=== PATIENT | female | born 1990 | race Caucasian/White ===

== ENCOUNTER 2016-11-22 21:56 | Emergency (ER) | payer BC, MEDICAID ==
[2016-11-22 22:23] LABS: AMORPHOUS SEDIMENT,URINE TRACE /HPF; APPEARANCE,URINE CLOUDY; BILIRUBIN,URINE NEGATIVE (NEGATIVE); GLUCOSE, URINE NEGATIVE (NEGATIVE); KETONES,URINE NEGATIVE (NEGATIVE); LEUKOCYTE ESTERASE,URINE NEGATIVE (NEGATIVE); NITRITE,URINE NEGATIVE (NEGATIVE); PROTEIN,URINE NEGATIVE (NEGATIVE); URINE SPECIFIC GRAVITY 1.014; UROBILINOGEN,URINE NEGATIVE mg/dL (<2.0)
--- NOTE | 2016-11-22 22:38 | ER Document Report ---
ED GI/ - General Chief Complaint: Vaginal Bleeding Stated Complaint: VAGINAL BLEEDING Time Seen by Provider: 11/22/16 22:36 Notes: The patient is a 26-year-old female, , 10 weeks by LMP presents with a gush of blood earlier today that has slowed down and now she is only having vaginal spotting. Her blood type is O+. Her first appointment with OB is in 4 days. She denies urinary symptoms, lightheadedness, nausea, vomiting, abdominal pain or fevers. TRAVEL OUTSIDE OF THE [place] IN LAST 30 DAYS: No - Related Data Allergies/Adverse Reactions: Pertussis Vaccines Allergy (Verified 11/22/16 22:11) Past Medical History - General Information source: Patient - Social History Smoking Status: Never Smoker Family History: Reviewed & Not Pertinent Patient has suicidal ideation: No Patient has homicidal ideation: No Renal/ Medical History: Denies: Hx Peritoneal Dialysis Review of Systems - Review of Systems Notes: REVIEW OF SYSTEMS: CONSTITUTIONAL: -fevers, -chills EENT: -eye pain, -difficulty swallowing, -nasal congestion CARDIOVASCULAR:-chest pain, -syncope. RESPIRATORY: -cough, -SOB GASTROINTESTINAL: -abdominal pain, - nausea, -vomiting, -diarrhea GENITOURINARY: -dysuria, -hematuria, +vaginal bleeding MUSCULOSKELETAL: -back pain, -neck pain SKIN: -rash or skin lesions. HEMATOLOGIC: -easy bruising or bleeding. LYMPHATIC: -swollen, enlarged glands. NEUROLOGICAL: -altered mental status or loss of consciousness, -headache, - neurologic symptoms PSYCHIATRIC: -anxiety, -depression. ALL OTHER SYSTEMS REVIEWED AND NEGATIVE. Physical Exam - Vital signs Vitals: Temp Pulse Resp BP Pulse Ox 98.2 F 84 18 132/72 H 100 11/22/16 22:08 11/22/16 22:08 11/22/16 22:08 11/22/16 22:08 11/22/16 22:08 - Notes Notes: PHYSICAL EXAMINATION: GENERAL: Well-appearing, well-nourished and in no acute distress. HEAD: Atraumatic, normocephalic. EYES: Pupils equal round and reactive to light, extraocular movements intact, sclera anicteric, conjunctiva are normal. ENT: nares patent, oropharynx clear without exudates. Moist mucous membranes. NECK: Normal range of motion, supple without lymphadenopathy LUNGS: Breath sounds clear to auscultation bilaterally and equal. No wheezes rales or rhonchi. HEART: Regular rate and rhythm without murmurs ABDOMEN: Soft, nontender, normoactive bowel sounds. No guarding, no rebound. No masses appreciated. EXTREMITIES: Normal range of motion, no pitting or edema. No cyanosis. NEUROLOGICAL: Cranial nerves grossly intact. Normal speech, normal gait. Normal sensory and motor exams. PSYCH: Normal mood, normal affect. SKIN: Warm, Dry, normal turgor, no rashes or lesions noted. Course - Re-evaluation Re-evalutation: Patient with no active vaginal bleeding at this time and a closed cervix. She has a single intrauterine with a subchorionic hemorrhage. Gave patient a copy of her ultrasound results and she has an appointment with her OB this week. Blood type is O+. Provided patient with information and return precautions. - Vital Signs Vital signs: Temp Pulse Resp BP Pulse Ox 98.2 F 84 18 132/72 H 100 11/22/16 22:08 11/22/16 22:08 11/22/16 22:08 11/22/16 22:08 11/22/16 22:08 - Laboratory Laboratory results interpreted by me: 11/22/16 11/22/16 22:00 22:55 Beta HCG, Quant 29574.00 H Urine Blood LARGE H Urine HCG, Qual POSITIVE H - Diagnostic Test Radiology reviewed: Image reviewed, Reports reviewed Radiology results interpreted by me: OB: LIVING INTRAUTERINE , at-risk with likely 4.9 cm subchorionic hemorrhage/clot. EGA 10 weeks 5 days Discharge - Discharge Clinical Impression: Vaginal bleeding in Subchorionic bleed Qualifiers: Fetus number: single or unspecified fetus Trimester: first trimester Qualified Code(s): O41.8X10 - Other specified disorders of amniotic fluid and membranes, first trimester, not applicable or unspecified; O46.8X1 - Other antepartum hemorrhage, first trimester; O46.8X1 - Other antepartum hemorrhage, first trimester Condition: Stable Disposition: HOME, SELF-CARE Additional Instructions: : You are . care is best started as early in as possible. If you're unsure about continuing this , you should discuss this with your physician or with sales enablement consultant at [facility]. You should take only medications approved by your physician. Acetaminophen can safely be taken for minor pains. As a rule, medication for chronic conditions such as asthma or seizures can safely be continued. You should discuss with the physician every medicine you take. Any regular exercise program can be continued. Talk to your physician, however, before engaging in competitive or demanding sports. Alcohol, smoking, and "street drugs" are dangerous to your baby. Cocaine is especially dangerous. Don't use any illicit drugs! BLEEDING DURING EARLY : You have been evaluated for passing blood while . While we take this symptom very seriously, most women with your degree of bleeding will go on to have a perfectly normal baby. At this time, there is no indication that a miscarriage will occur. (A miscarriage occurs when the fetus is abnormal. There is no medicine or treatment to prevent it.) A more serious cause of bleeding is tubal (or ectopic) . An ultrasound usually can show whether the is in the uterus or in the tube. Sometimes in early , no fetus is seen. In this case, careful follow-up, including repeat blood tests and repeat ultrasound, is necessary. Do not douche or have sex for at least a week, or until OK'd by the doctor. Don't use tampons. Call the doctor or return for re-examination if there is an increase in bleeding or cramping, extreme weakness, fainting, new abdominal pain, fever, or passage of tissue. THREATENED MISCARRIAGE: You have been evaluated for a possible miscarriage. At this time, there is no indication that a miscarriage will occur. Most women with your symptoms will go on to have a perfectly normal baby. However, careful observation will be necessary. A miscarriage occurs when the fetus is abnormal. There is no medicine or treatment for it. You should rest in bed until the symptoms have resolved. Do not douche or have sex for at least a week, or until OK'd by the doctor. Call the doctor or return for re-examination if there is an increase in bleeding or cramping, or passage of tissue. FOLLOW-UP CARE: If you have been referred to a physician for follow-up care, call the physician s office for an appointment as you were instructed or within the next two days. If you experience worsening or a significant change in your symptoms (very heavy bleeding with large clots of blood, passage of tissue, more severe abdominal / pelvic pain or cramping, feeling faint or severe weakness, fever, etc.), notify the physician immediately or return to the Emergency Department at any time for re-evaluation. OBSTETRIC-GYNECOLOGIC (OB-OTR COMPANY DRIVER) PHYSICIANS IN [place]: [facility] [address] [place], [place] [phone] [facility] [address] [place], [place] [phone] For active duty and dependents diagnosed with a threatened or miscarriage, you should follow up in the following manner: Standard patients who have a local civilian provider should follow up with that provider. Patients of the Family Practice Clinic should call your Team Nurse at 8: 00 am the following morning for further instructions. If you are neither a Standard patient nor a patient of the Family Practice Clinic, you should follow up at the [facility] ([facility]) . Patients already enrolled in the [facility] OB Clinic, Prime patients not assigned to the Family Practice Clinic, and Active Duty patients not assigned to Family Practice Clinic should report to the [facility] Lab at 8:00 am the next morning that the [facility] OB Clinic is open and then you will be seen in the OB Clinic at 11:00 am. Referrals: BRETT GUTIERREZ, DO [Primary Care Provider] - Follow up as needed
--- NOTE | 2016-11-23 01:38 | RADIOLOGY REPORT (SQ) ---
EXAM DESCRIPTION: U/S OB TRANSVAGINAL W/O DOP COMPLETED DATE/TIME: 11/23/2016 1:07 am REASON FOR STUDY: , vaginal bleeding COMPARISON: None. TECHNIQUE: Transvaginal and transabdominal static and realtime grayscale images acquired of the pelv is. Additional selected spectral and color Doppler images recorded. All images stored on PACs. bHC,154 LIMITATIONS: None. FINDINGS: FETUS: Living intrauterine . EGA: 10 weeks and 5 days 5 days based on crown-rump length of 3.8 cm. ANN: 06/16/2017. FHR: 182 beats per minute. SUBCHORIONIC BLEED: Yes. SIZE OF BLEED: 4.9 x 3.5 x 2.9 cm. UTERUS: No masses. No anomalies. CERVICAL LENGTH: 3.1 cm Closed. RIGHT ADNEXA: Ovary not identified. No adnexal free fluid. No adnexal masses. LEFT ADNEXA: Ovary not identified. No adnexal free fluid. No adnexal masses. FREE FLUID: None. OTHER: No other significant finding. IMPRESSION: LIVING INTRAUTERINE , at-risk with likely 4.9 cm subchorionic hemorrhage/clot. EGA 10 weeks 5 days Trimester of : First - 0 to 13 weeks. TECHNICAL DOCUMENTATION: JOB ID: [id number] All Rights Reserved
[2016-11-23 02:30] VITALS: BP 124/80
== END 2016-11-23 02:30 | disposition home or self-care (01) ==
LOC: ER 21:56
DX: O46.8X1 Other antepartum hemorrhage, first trimester (principal); O41.8X10 Other specified disorders of amniotic fluid and membranes, first trimester, not applicable or unspecified; Z3A.10 10 weeks gestation of pregnancy
CPT/HCPCS: 36415; 76817; 81001; 81025; 84702; 86900; 86901; 99284

== ENCOUNTER 2017-06-14 02:00 | Inpatient (IN) | payer BC ==
[2017-06-14 03:02] LABS: APPEARANCE,URINE CLOUDY; BILIRUBIN,URINE NEGATIVE (NEGATIVE); COLOR,URINE YELLOW; GLUCOSE, URINE NEGATIVE (NEGATIVE); KETONES,URINE NEGATIVE (NEGATIVE); LEUKOCYTE ESTERASE,URINE NEGATIVE (NEGATIVE); NITRITE,URINE NEGATIVE (NEGATIVE); PROTEIN,URINE NEGATIVE (NEGATIVE); URINE SPECIFIC GRAVITY 1.014; UROBILINOGEN,URINE NEGATIVE mg/dL (<2.0)
[2017-06-14 03:07] LABS: AMNISURE (ROM) POSITIVE (NEGATIVE)
[2017-06-14] MEDS ORDERED: RINGERS SOLUTION,LACTATED 300 ML IV ONE (03:16)
[2017-06-14] MEDS ORDERED: OXYTOCIN/NORMAL SALINE 20 UNIT/1,000 ML RTUINJ IV PRN ×2 (03:16→18:43)
[2017-06-14] MEDS ORDERED: ONDANSETRON HCL INJ/PF 4 MG/2 ML SDV IV ONE (03:22)
[2017-06-14 03:26] LABS: URINE AMPHETAMINES SCREEN NEGATIVE; URINE BARBITURATES SCREEN NEGATIVE; URINE BENZODIAZEPINES SCREEN NEGATIVE; URINE COCAINE SCREEN NEGATIVE; URINE MARIJUANA (THC) SCREEN NEGATIVE; URINE METHADONE SCREEN NEGATIVE; URINE PHENCYCLIDINE SCREEN NEGATIVE
[2017-06-14] MEDS ORDERED: ONDANSETRON HCL INJ/PF 4 MG/2 ML SDV ONE (03:38)
[2017-06-14 04:48] LABS: ABSOLUTE EOSINOPHILS # (AUTO) 0.2 10^3/uL (0.0-0.6); ABSOLUTE LYMPHOCYTES (AUTO) 2.5 10^3/uL (0.5-4.7); ABSOLUTE MONOCYTES (AUTO) 0.9 10^3/uL (0.1-1.4); BASOPHILS % (AUTO) 0.4 % (0-2); EOSINOPHILS % (AUTO) 1.5 % (0-6); HEMOGLOBIN 11.5 g/dL (12.0-15.5); LYMPHOCYTES % (AUTO) 23.6 % (13-45); MEAN CORPUSCULAR HEMOGLOBIN 28.3 pg (27.0-33.4); MEAN CORPUSCULAR HGB CONC 33.9 g/dL (32.0-36.0); MEAN CORPUSCULAR VOLUME 84 fl (80-97); MONOCYTES % (AUTO) 8.6 % (3-13); PLATELET COUNT 263 10^3/uL (150-450); RED BLOOD COUNT 4.07 10^6/uL (3.72-5.28); RED CELL DISTRIBUTION WIDTH 13.8 % (11.5-14.0); SEGMENTED NEUTROPHILS % (AUTO) 65.9 % (42-78); TOTAL CELLS COUNTED % (AUTO) 100 %; WHITE BLOOD COUNT 10.6 10^3/uL (4.0-10.5)
[2017-06-14] MEDS ORDERED: OXYTOCIN/NORMAL SALINE 20 UNIT/1,000 ML RTUINJ ONE ×3 (04:51→18:59)
[2017-06-14] MEDS ORDERED: PHENYLEPHRINE HCL INJ/PF 10 MG/1 ML SDV ONE (07:31)
--- NOTE | 2017-06-14 07:53 | Admission Physical ---
Datetime Report Generated by CPN: 06/14/2017 07:52 CURRENT ADMISSION Chief Complaint: Suspected Ruptured Membranes Indication for Induction: Not Applicable Admit Impression : Term, Intrauterine ; Ruptured Membranes Admit Plan: Admit to Unit ALLERGIES Medication Allergies: Yes Medication Allergies: Pertussis Vaccines/Fever (06/14/2017) Latex: No Latex Allergies OBSTETRICAL HISTORY EDC: 06/20/2017 00:00 : 1 Para: 0 Term: 0 : 0 SAB: 0 IAB: 0 Livin Cesareans: 0 Gestational Diabetes: No Rh Sensitization: No Incompetent Cervix: No HALINA: No Infertility: No ART Treatment: No Uterine Anomaly: No IUGR: No Hx Previous C/S: No Macrosomia: No Hx Loss/Stillborn: No PIH: Yes Hx : No Placenta Previa/Abruption: No Depression/PP Depression: No PTL/PROM: No Post Hemorrhage: No Current Procedures: Ultrasound Obstetrical History Comments: G1: present, subchorionic hemorrhage resolved SEE RECORDS Alcohol: No Marijuana : No Cocaine: No Other Illicit Drugs: No Cigarettes: Never Smoker. [id number] MEDICAL HISTORY Diabetes: No Blood Transfusion: No Pulmonary Disease (Asthma, TB): No Breast Disease: No Hypertension: Yes Collision Mechanic Surgery: No Heart Disease: No Hosp/Surgery: Yes Autoimmune Disorder: No Anesthetic Complications: No Kidney Disease: No Abnormal Pap Smear: Yes Neuro/Epilepsy: No Psychiatric Disorders: Yes Other Medical Diseases: Yes Hepatitis/Liver Disease: No Significant Family History: No Varicosities/Phlebitis: No Trauma/Violence : No Thyroid Dysfunction: No Medical History Comments: hypertension last office visit; hospitalization/sx: chiari malformation, brain sx 2000, T_A; abn pap: ASCUS pap +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, LGSIL w colpo 04/2016; anxiety INFECTIOUS HISTORY Gonorrhea: No Genital Herpes: No Chlamydia: No Tuberculosis: No Syphilis: No Hepatitis: No HIV/AIDS Exposure: No Rash or Viral Illness: No HPV: Yes Infectious History Comments: +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/2016 PHYSICAL EXAM General: Normal HEENT: Normal Neurologic: Normal Thyroid: Normal Heart: Normal Lungs: Normal Breast: Deferred Back: Normal Abdomen: Normal Genitourinary Exam: Normal Extremities: Normal DTRs: Normal Pelvic Type: Adequate Vital Signs: Reviewed VAGINAL EXAM Dilatation: 1 MEMBRANES Pooling: Positive Ferning Results: Positive Membranes: Ruptured FETUS A EGA: 39.1 Monitoring: External US FHR- Baseline: 130 Variability: Moderate 6-25bpm Accelerations: 15X15 Decelerations: None FHR Category: Category I Presentation: Vertex Admit Comment: begin pitocin PLANS FOR LABOR AND DELIVERY Labor and Delivery: Plan Pain Management: Epidural Feeding Preference: Breast Benefit of Breast Feed Discussed: Yes Circumcision: Yes INFORMED CONSENT Signature: with User ID: [email or web address]
[2017-06-14] MEDS ORDERED: MISOPROSTOL 0.2 MG TABLET ONE (11:06)
[2017-06-14] MEDS ORDERED: LIDOCAINE 1% INJ-PF (10 MG/ML) 30 ML SDV ONE (11:06)
--- NOTE | 2017-06-14 16:58 | L&D Progress Notes ---
PROGRESS NOTES Datetime Report Generated by CPN: 06/14/2017 16:58 PROGRESS NOTE Impression: Reassuring Heart Rate; Premature Rupture of Membranes Procedures: Sterile Vag Exam Plan: Continue Present Management; Induction Vital Signs : Reviewed; Within Normal Limits Comment: Difficult SVE-cx tight, firm/high-not well applied but more mid than previously. Afebrile. Will notify MD of exam. VAGINAL EXAM Dilatation: 1 Dilatation: 1 Effacement: 80 Station: -3 MEMBRANES Pooling: Positive Ferning Results: Positive Membranes: Ruptured Membranes: Ruptured Amniotic Fluid Color: Clear FETUS A FHR - Baseline: 150 Monitoring: External US Accelerations: 15X15 R Category: Category I : 39.1 : 39.0 Presentation: Vertex SIGNATURE SIGNATURE: ,[id number] SIGNATURE: [id number] Assignment: Jong Lopez MD Signature: with User ID: [email or web address] : with User ID: [email or web address] : I personally evaluated and examined the patient in conjunction with the MLP and agree with the assessment, treatment plan and disposition.
[2017-06-14] MEDS ORDERED: CITRIC ACID/SODIUM CITRATE ORAL SOLN 15 ML UDCUP ONE (17:20)
[2017-06-14] MEDS ORDERED: CEFAZOLIN 2 GM/D5W RTU 2 GM/50 ML RTUPB IV ONE (17:20)
[2017-06-14] MEDS: RINGERS SOLUTION,LACTATED 1,000 ML IV PRN (17:32)
[2017-06-14] MEDS ORDERED: FENTANYL CITRATE INJ/PF 100 MCG/2 ML AMPUL ONE ×2 (17:41→19:22)
[2017-06-14] MEDS ORDERED: PROPOFOL INJ 200 MG/20 ML VIAL IV ONE (17:41)
[2017-06-14] MEDS ORDERED: OXYTOCIN 10 UNIT/ML VIAL ONE (17:41)
[2017-06-14] MEDS ORDERED: EPHEDRINE SULFATE INJ 50 MG/1 ML AMPULE ONE (17:42)
[2017-06-14] MEDS ORDERED: MIDAZOLAM 2 MG/2 ML INJ ONE (17:42)
[2017-06-14] MEDS ORDERED: TETRACAINE HCL/PF 20MG/2ML AMPULE (SPINAL) ONE (17:43)
[2017-06-14] MEDS ORDERED: DIPHENHYDRAMINE HCL 50 MG/ML VIAL IV PRN (18:22)
[2017-06-14] MEDS ORDERED: PROMETHAZINE HCL INJ 25 MG/1 ML VIAL IV PRN ×2 (18:22→18:43)
[2017-06-14] MEDS ORDERED: FENTANYL CITRATE INJ/PF 100 MCG/2 ML AMPUL IV PRN ×3 (18:22)
[2017-06-14] MEDS ORDERED: DIPH/PERTUSS(ACELL)/TETANUS VAC/PF 0.5 ML SYR (>=10YO) IM PRN (18:43)
[2017-06-14] MEDS ORDERED: SIMETHICONE 80 MG TAB.CHEW PO PRN (18:43)
[2017-06-14] MEDS ORDERED: ACETAMINOPHEN 325 MG TABLET PO PRN (18:43)
[2017-06-14] MEDS ORDERED: MORPHINE SULFATE 10 MG/ML INJ IM PRN (18:43)
[2017-06-14] MEDS ORDERED: OXYCODONE-ACETAMINOPHEN 5-325 MG TABLET PO PRN (18:43)
[2017-06-14] MEDS ORDERED: MEASLES,MUMPS&RUBELLA VACC/PF 0.5 ML VIAL SUBCUT PRN (18:43)
[2017-06-14] MEDS ORDERED: HYDROXYZINE PAMOATE 25 MG CAPSULE PO PRN (18:44)
--- NOTE | 2017-06-14 18:59 | OPERATIVE REPORT E ---
Operative Report NAME: IVONNE BLUNT : 1990 AGE: 27Y DATE OF SURGERY: 06/14/2017 ROOM: LR200 PREOPERATIVE DIAGNOSES: 1. PREMATURE RUPTURE OF MEMBRANES. 2. FAILURE TO DESCEND. POSTOPERATIVE DIAGNOSES: 1. PREMATURE RUPTURE OF MEMBRANES. 2. FAILURE TO DESCEND. OPERATION: Primary low transverse with delivery of a viable male, 6 pounds 10 ounces, Apgars of 9 and 9. SURGEON: Sadi CHAVEZ M.D. ANESTHESIA: Spinal. ESTIMATED BLOOD LOSS: Less than 600 mL. TISSUE REMOVED: Placenta. PROCEDURE: The patient was placed in a supine position, rolled onto her right side, prepped and draped in sterile fashion. A Pfannenstiel incision was made. The incision extended through the subcutaneous tissue and fascia with sharp dissection. Fascia sharply divided. Rectus muscle bluntly and sharply divided. Parietal peritoneum was entered with sharp dissection. The uterus nicked in the midline and extended bilaterally. Infant was then delivered through the uterine and abdominal incision. Nose and mouth suctioned with bulb syringe. Cord was clamped and infant was passed from the table. Placenta was manually extracted. Uterus closed in 2 layers using 0 Vicryl, first in a running stitch, then a second Lembert stitch imbricating the first layer. Several areas of bleeding were noted along the suture line, and these were controlled with [id number] sutures of 0 Vicryl. Hemostasis was noted. Fascia closed with 0 Vicryl, skin with subcutaneous absorbable dereck. Her urine remained clear throughout the procedure. She was taken to recovery in good condition. Infant to the nursery in good condition. DICTATING PHYSICIAN: Sadi CHAVEZ M.D. [id number] PHY#: [id number] ID: [id number] JOB#: [id number] ACCT: [id number] cc:Sadi CHAVEZ M.D. >
[2017-06-14] MEDS ORDERED: IBUPROFEN 800 MG TABLET PO ONE (19:00)
[2017-06-14] MEDS ORDERED: CEFTRIAXONE 1 GM/D5W RTU 1 GM/50 ML RTUPB IV SCH (19:00)
[2017-06-14] MEDS ORDERED: ACETAMINOPHEN 100 ML IV ONE (19:00)
[2017-06-14] MEDS ORDERED: PROMETHAZINE HCL INJ 25 MG/1 ML VIAL ONE (19:22)
--- NOTE | 2017-06-14 20:23 | Delivery Summary ---
Del Sum A-C Datetime Report Generated by CPN: 06/14/2017 20:23 DELIVERY PERSONNEL DELIVERY PERSONNEL: [id number] Delivery Doctor:: Jong Lopez MD Anesthesiologist:: Rafael Baldwin MD ONCOLOGY SOCIAL WORKER:: Ronna Carter CRNA Labor and Delivery Nurse:: Chepe Chavez RN Supervisor Rework:: Chepe Chavez RN Neonatal Nurse Practitioner:: ADIS Hastings Nursery Nurse:: Melinda Kong RN Billet Header/SOFTWARE ENGINEER MOBILE: ST Sherif Billet Header/SOFTWARE ENGINEER MOBILE: Etta Marroquin ELECTROMECHANICAL ASSEMBLY TECHNICIAN MATERNAL INFORMATION Delivery Anesthesia: Spinal Medications After Delivery: Pitocin Drip 20 Units/1000ml NSS Maternal Complications: Premature Rupture of Membranes LABOR SUMMARY EDC: 06/20/2017 00:00 No. Babies in Womb: 0 Attempted: No Labor Anesthesia: None LABOR INFORMATION Reason for Induction: Not Applicable Reason for Induction- Other: pre=term ROM Oxytocin: Induction Group B Beta Strep: negative Antibiotics # of Doses: 0 Steroids Given: None Reason Steroids Not Administered: Not Applicable MEMBRANES Membranes Rupture Method: Spontaneous Rupture of Membranes: 06/14/2017 01:00 Length of Rupture (hr): 18.33 Amniotic Fluid Color: Clear Amniotic Fluid Amount: Moderate Amniotic Fluid Odor: Normal STAGES OF LABOR Stage 3 hr: -1 Stage 3 min: -10 VAGINAL DELIVERY Episiotomy: None Laceration #1: None Laceration Extension #1: N/A Sponge Count Correct: N/A Sharps Count Correct: N/A CSECTION DELIVERY Primary Indication: Other Other Primary Indication: PROM/FTOL/CHORIO CSection Urgency: Non-Scheduled CSection Incidence: Primary Labor: Labor Elective: Nonelective CSection Incision: Lower Uterine Transverse BABY A INFORMATION Infant Delivery Date/Time: 06/14/2017 19:20 Method of Delivery: Born in Route : No : N/A Forceps: N/A Vacuum Extraction: N/A Shoulder Dystocia : No PRESENTATION/POSITION BABY A Presentation: Cephalic Cephalic Presentation: Vertex Breech Presentation: N/A PLACENTA INFORMATION BABY A Placenta Delivery Time : 06/14/2017 18:10 Placenta Method of Delivery: Manual Removal Placenta Status: Delivered SCORES BABY A Heart Rate 1 min: >100 bpm Resp Effort 1 min: Good Cry Reflex Irritability 1 min: Cough or Sneeze or Pulls Away Muscle Tone 1 min: Active Motion Color 1 min: Body Dakota, Extremities Blue SCORE 1 MIN: 9 Heart Rate 5 min: >100 bpm Resp Effort 5 min: Good Cry Reflex Irritability 5 min: Cough or Sneeze or Pulls Away Muscle Tone 5 min: Active Motion Color 5 min: Body Dakota, Extremities Blue SCORE 5 MIN: 9 INFORMATION BABY A Gestational Age at Delivery: 39.1 Gestational Status: Full Term- 39- 40.6 Weeks Outcome : Liveborn Condition : Stable Sex: Male IDENTIFICATION BABY A Verification Date/Time: 06/14/2017 19:21 ID Band Number: [id number] Mother's Name Verified: Yes Infant RN Verifying : Carolann Moura, RN / CShaun Carbone, RN WEIGHT/LENGTH BABY A Birthweight (gm): 2995 Infant Weight (lb): 6 Weight (oz): 10 Infant Length (in): 19.75 Length (cm): 50.17 CORD INFORMATION BABY A No. Cord Vessels: 3 Nuchal Cord : N/A Cord Blood Taken: Yes-For Storage (Mom's Blood type +) Infant Suction: None ASSESSMENT BABY A Complications: None Physical Findings at Delivery: Within Normal Limits Infant Respirations: Appears Normal Skin to Skin: Yes Skin to Skin Time (min): 5 Fur Plucker/ALS Called : No Care By: Joseph Kong RN Transferred To: Nursery BABY B INFORMATION : N/A SIGNATURES Signature: with User ID: [email or web address] : I personally evaluated and examined the patient in conjunction with the MLP and agree with the assessment, treatment plan and disposition.
[2017-06-14] MEDS: OXYCODONE-ACETAMINOPHEN 5-325 MG TABLET PO PRN (22:53)
[2017-06-15] MEDS: RINGERS SOLUTION,LACTATED 1,000 ML IV PRN (01:36)
[2017-06-15] MEDS: IBUPROFEN 800 MG TABLET PO SCH ×5 (01:40→23:10)
[2017-06-15] MEDS: CEFTRIAXONE SODIUM 1,000 MG in DEXTROSE 5%-WATER 50 ML IV SCH ×3 (02:00→23:06)
[2017-06-15] MEDS ORDERED: CEFTRIAXONE INJ 500 MG VIAL ONE (02:24)
[2017-06-15 07:15] LABS: HEMATOCRIT 29.8 % (36.0-47.0); MEAN CORPUSCULAR HEMOGLOBIN 28.2 pg (27.0-33.4); MEAN CORPUSCULAR HGB CONC 33.6 g/dL (32.0-36.0); MEAN CORPUSCULAR VOLUME 84 fl (80-97); PLATELET COUNT 235 10^3/uL (150-450); RED BLOOD COUNT 3.55 10^6/uL (3.72-5.28); RED CELL DISTRIBUTION WIDTH 13.9 % (11.5-14.0); WHITE BLOOD COUNT 13.1 10^3/uL (4.0-10.5)
--- NOTE | 2017-06-15 09:45 | PDOC PROGRESS REPORT ---
Subjective-OB Progress Note for:: 06/15/17 Subjective: Day #1 s/p R c/s Pt doing well, up ambulating, lochia is stable, pain well controlled, voiding without difficulty, passing gas. Physical Exam (OB) Vital Signs: Temp Pulse Resp BP Pulse Ox 98.3 F 84 16 109/65 98 06/15/17 07:37 06/15/17 07:37 06/15/17 07:37 06/15/17 07:37 06/15/17 07:37 Intake & Output 06/14/17 06/15/17 06/16/17 06:59 06:59 06:59 Intake Total 500 Output Total 700 800 Balance -700 -300 Weight 104.5 kg - Dressing Removed: Yes Incision: Dressing - Lochia Lochia Amount: Small 10-25 ml Lochia Color: Rubra/Red - Abdomen Description: Soft, Round Hernia Present: No Fundal Description: Firm, Midline Fundal Height: u/u - u/2 Objective-Diagnostic Laboratory: 06/15/17 06:51 06/15/17 06:51 WBC 13.1 H RBC 3.55 L Hgb 10.0 L Hct 29.8 L MCV 84 MCH 28.2 MCHC 33.6 RDW 13.9 Plt Count 235 Assessment and Plan(PN) - Assessment and Plan (1) Status post primary low transverse section Is this a current diagnosis for this admission?: Yes Plan: routine pp care (2) Acute blood loss anemia Is this a current diagnosis for this admission?: Yes Plan: ferrous sulfate increase dietary iron - Time Spent with Patient Time with patient: Less than 15 minutes Critical Time spent with patient: Less than 15 minutes Medications reviewed and adjusted accordingly: Yes - Disposition Anticipated Discharge: Home Within: within 24 hours
[2017-06-15] MEDS ORDERED: (PENDING PHARMACY ID) (Prenatal Vit,Calc76/Iron/Folic [Prenatabs Rx Tablet] 1 EACH) PO SCH (10:00)
[2017-06-15] MEDS ORDERED: PRENATAL VITAMIN W DHA CAPSULE PO SCH (10:00)
[2017-06-15] MEDS: PRENATAL VITAMIN W DHA CAPSULE PO SCH (10:14)
[2017-06-15] MEDS: DOCUSATE SODIUM 100 MG CAPSULE PO SCH ×2 (10:15→17:20)
[2017-06-15] MEDS: OXYCODONE-ACETAMINOPHEN 5-325 MG TABLET PO PRN (13:44)
[2017-06-16] MEDS: IBUPROFEN 800 MG TABLET PO SCH ×2 (05:36→12:28)
[2017-06-16] MEDS: OXYCODONE-ACETAMINOPHEN 5-325 MG TABLET PO PRN ×2 (05:37→13:37)
[2017-06-16] MEDS: DOCUSATE SODIUM 100 MG CAPSULE PO SCH (09:41)
[2017-06-16] MEDS: PRENATAL VITAMIN W DHA CAPSULE PO SCH (09:41)
--- NOTE | 2017-06-16 11:20 | PDOC DISCHARGE SUMMARY ---
Final Diagnosis Discharge Date: 06/16/17 - Final Diagnosis (1) Status post primary low transverse section Is this a current diagnosis for this admission?: Yes (2) Acute blood loss anemia Is this a current diagnosis for this admission?: Yes Discharge Data - Discharge Medication Prescriptions: Oxycodone HCl/Acetaminophen [Percocet 5-325 mg Tablet] 2 tab PO Q4HP PRN #30 tablet PRN Reason: Docusate Sodium [Colace 100 mg Capsule] 100 mg PO BID #30 capsule Ferrous Sulfate 325 mg PO BID #60 tablet Ibuprofen [Motrin 800 mg Tablet] 800 mg PO Q6 #60 tablet Home Medications: Vit,Calc76/Iron/Folic [Prenatabs Rx Tablet] 1 each PO DAILY 06/14/17 Docusate Sodium [Colace 100 mg Capsule] 100 mg PO BID #30 capsule 06/16/17 Ferrous Sulfate 325 mg PO BID #60 tablet 06/16/17 Ibuprofen [Motrin 800 mg Tablet] 800 mg PO Q6 #60 tablet 06/16/17 Oxycodone HCl/Acetaminophen [Percocet 5-325 mg Tablet] 2 tab PO Q4HP PRN #30 tablet 06/16/17 Reason(s) for Admission: Onset of Labor Procedures: NST Intrapartum Procedure(s): : Low Cervical, Transverse - Data Baby 1 Male at 1 minute: 9 at 5 minutes: 9 Weight: 3.005 kg Home with Mother: Yes Complications: No - Diagnosis Test Laboratory: Temp Pulse Resp BP Pulse Ox 98.3 F 87 18 123/60 96 06/16/17 07:29 06/16/17 07:29 06/16/17 05:06 06/16/17 07:29 06/16/17 07:29 06/14/17 06/14/17 06/15/17 02:40 04:31 06:51 RBC 4.07 3.55 L Hgb 11.5 L 10.0 L Hct 34.0 L 29.8 L Urine Opiates Screen NEGATIVE - Discharge information/Instructions Discharge Activity: Activity As Tolerated, No Lifting Over 10 Pounds, Pelvic Rest, No tub bath Discharge Diet: Regular Disposition: HOME, SELF-CARE [facility] in: 1, Weeks
[2017-06-16 13:04] VITALS: BP 131/65
== END 2017-06-16 14:03 | disposition home or self-care (01) | DRG 765 ==
LOC: LC 02:00 → LR 03:13 → 2S 21:45
PROVIDERS: ADMIT Obstetrics & Gynecology; ATTEND Obstetrics & Gynecology
PROC: 10D00Z1 Extraction of Products of Conception, Low, Open Approach (ICD-10-PCS; principal; 2017-06-14)
PROC: 3E033VJ Introduction of Other Hormone into Peripheral Vein, Percutaneous Approach (ICD-10-PCS; 2017-06-14)
PROC: 4A1HXCZ Monitoring of Products of Conception, Cardiac Rate, External Approach (ICD-10-PCS; 2017-06-14)
DX: O32.4XX0 Maternal care for high head at term, not applicable or unspecified (principal); D62 Acute posthemorrhagic anemia; O99.02 Anemia complicating childbirth; O99.344 Other mental disorders complicating childbirth; F41.9 Anxiety disorder, unspecified; Z88.7 Allergy status to serum and vaccine; Z3A.39 39 weeks gestation of pregnancy; Z37.0 Single live birth
CPT/HCPCS: 1961; 36415; 80307; 81005; 84112; 85025; 85027; 86592; 86850; 86900; 86901; 88307; 94799; J0131; J0690; J2250; J2370; J2405; J2550; J2590; J2704; J3010; J3490; J7120

== ENCOUNTER 2018-03-21 22:27 | Emergency (ER) | payer BC ==
[2018-03-22] MEDS ORDERED: TETRACAINE HCL 0.5% OPH SOLN 4 ML OD ONE (02:22)
--- NOTE | 2018-03-22 02:38 | ER Document Report ---
Addendum entered and electronically signed by VERENA ANTUNEZ PA-C 03/22/18 02:46: Discharge - Discharge Clinical Impression: Corneal abrasion Qualifiers: Encounter type: initial encounter Laterality: right Qualified Code(s): S05.01XA - Injury of conjunctiva and corneal abrasion without foreign body, right eye, initial encounter Condition: Good Disposition: HOME, SELF-CARE Instructions: Corneal Abrasion ([facility]) Prescriptions: Hydrocodone/Acetaminophen [Warren 5-325 mg Tablet] 1 tab PO Q6H #10 tablet Hydrocodone/Acetaminophen [Warren 5-325 mg Tablet] 1 tab PO Q6H #10 tablet Tobramycin [Tobrex] 2 drop OD TID 7 Days #5 ml Referrals: EYE DOCTOR, YOUR [Other] - 03/22/18 BRETT GUTIERREZ DO [Primary Care Provider] - Follow up as needed Original Note: ED General - General Chief Complaint: Eye Injury Stated Complaint: POKED IN RIGHT EYE Time Seen by Provider: 03/22/18 02:21 Primary Care Provider: BRETT GUTIERREZ DO [Primary Care Provider] - Follow up as needed Cannot obtain history due to: Dementia TRAVEL OUTSIDE OF THE [place] IN LAST 30 DAYS: No - HPI Patient complains to provider of: RIGHT EYE INJURY Onset: Just prior to arrival - Related Data Allergies/Adverse Reactions: Pertussis Vaccines Allergy (Verified 06/14/17 02:27) Fever Past Medical History - General Information source: Patient - Social History Smoking Status: Never Smoker Chew tobacco use (# tins/day): No Frequency of alcohol use: Occasional Drug Abuse: None Family History: Reviewed & Not Pertinent Patient has suicidal ideation: No Patient has homicidal ideation: No Renal/ Medical History: Denies: Hx Peritoneal Dialysis Review of Systems - Review of Systems Constitutional: No symptoms reported EENT: Eye pain, Eye discharge, Blurred vision, Tearing Cardiovascular: No symptoms reported Respiratory: No symptoms reported Gastrointestinal: No symptoms reported Genitourinary: No symptoms reported Female Genitourinary: No symptoms reported Musculoskeletal: No symptoms reported Skin: No symptoms reported Hematologic/Lymphatic: No symptoms reported Neurological/Psychological: No symptoms reported -: Yes All other systems reviewed and negative Physical Exam - General General appearance: Appears well, Alert In distress: None - HEENT Head: Normocephalic, Atraumatic Eyes: Tears - Right eye Cornea: Corneal abrasion - Right eye. No: Embedded foreign body, Superficial foreign body Extraocular movements intact: Yes Eyelashes: Normal Pupils: PERRL Visual acuity- Right eye: 20/50 Visual acuity- Left eye: 20/25 Visual acuity- Both eyes: 20/25 Corrective lenses worn: No - Respiratory Respiratory status: No respiratory distress Chest status: Nontender Breath sounds: Normal Chest palpation: Normal - Cardiovascular Rhythm: Regular Heart sounds: Normal auscultation Murmur: No - Abdominal Inspection: Normal Distension: No distension Bowel sounds: Normal Tenderness: Nontender Organomegaly: No organomegaly - Back Back: Normal - Extremities Notes: MAEW - Neurological Neuro grossly intact: Yes - Psychological Associated symptoms: Normal affect, Normal mood - Skin Skin Temperature: Warm Skin Moisture: Dry Skin Color: Normal Skin irregularity: negative: Rash Course - Re-evaluation Re-evalutation: 03/22/18 02:37 Large corneal abrasion seen on the right cornea. I will start her on some tobramycin drops and Warren for pain. We will have her follow-up with her eye doctor today Discharge - Discharge Clinical Impression: Corneal abrasion Qualifiers: Encounter type: initial encounter Laterality: right Qualified Code(s): S05.01XA - Injury of conjunctiva and corneal abrasion without foreign body, right eye, initial encounter Condition: Good Disposition: HOME, SELF-CARE Instructions: Corneal Abrasion ([facility]) Prescriptions: Hydrocodone/Acetaminophen [Warren 5-325 mg Tablet] 1 tab PO Q6H #10 tablet Tobramycin [Tobrex] 2 drop OD TID 7 Days #5 ml Referrals: BRETT GUTIERREZ DO [Primary Care Provider] - Follow up as needed EYE DOCTOR, YOUR [Other] - 03/22/18
[2018-03-22 04:29] VITALS: BP 118/62
== END 2018-03-22 03:35 | disposition home or self-care (01) ==
LOC: ER 22:27
DX: S05.01XA Injury of conjunctiva and corneal abrasion without foreign body, right eye, initial encounter (principal); W50.0XXA Accidental hit or strike by another person, initial encounter
CPT/HCPCS: 99283

== ENCOUNTER 2019-10-30 05:03 | Inpatient (IN) | payer BC, OTHER ==
[2019-10-27 09:56] LABS: APPEARANCE,URINE SLIGHTLY-CLOUDY; BILIRUBIN,URINE NEGATIVE (NEGATIVE); COLOR,URINE YELLOW; GLUCOSE, URINE NEGATIVE (NEGATIVE); KETONES,URINE NEGATIVE (NEGATIVE); LEUKOCYTE ESTERASE,URINE NEGATIVE (NEGATIVE); NITRITE,URINE NEGATIVE (NEGATIVE); PROTEIN,URINE 30 mg/dL (NEGATIVE); URINE SPECIFIC GRAVITY 1.019; UROBILINOGEN,URINE NEGATIVE mg/dL (<2.0)
[2019-10-27 09:57] LABS: ABSOLUTE EOSINOPHILS # (AUTO) 0.1 10^3/uL (0.0-0.6); ABSOLUTE LYMPHOCYTES (AUTO) 1.9 10^3/uL (0.5-4.7); ABSOLUTE MONOCYTES (AUTO) 0.5 10^3/uL (0.1-1.4); ABSOLUTE NEUT (AUTO) 5.9 10^3/uL (1.7-8.2); BASOPHILS % (AUTO) 0.3 % (0-2); HEMATOCRIT 33.4 % (36.0-47.0); HEMOGLOBIN 11.2 g/dL (12.0-15.5); LYMPHOCYTES % (AUTO) 22.5 % (13-45); MEAN CORPUSCULAR HEMOGLOBIN 27.4 pg (27.0-33.4); MEAN CORPUSCULAR HGB CONC 33.5 g/dL (32.0-36.0); MEAN CORPUSCULAR VOLUME 82 fl (80-97); MONOCYTES % (AUTO) 5.5 % (3-13); PLATELET COUNT 236 10^3/uL (150-450); RED CELL DISTRIBUTION WIDTH 13.9 % (11.5-14.0); SEGMENTED NEUTROPHILS % (AUTO) 70.7 % (42-78); TOTAL CELLS COUNTED % (AUTO) 100 %; WHITE BLOOD COUNT 8.4 10^3/uL (4.0-10.5)
[2019-10-27 10:24] LABS: URINE AMPHETAMINES SCREEN NEGATIVE; URINE BARBITURATES SCREEN NEGATIVE; URINE BENZODIAZEPINES SCREEN NEGATIVE; URINE COCAINE SCREEN NEGATIVE; URINE MARIJUANA (THC) SCREEN NEGATIVE; URINE METHADONE SCREEN NEGATIVE; URINE PHENCYCLIDINE SCREEN NEGATIVE
[~2019-10-30 05:03] MED LIST: CEFAZOLIN 2 GM/D5W RTU 2 GM/50 ML RTUPB IV PRN; LACTATED RINGERS 1000 ML IV PRN; RINGERS SOLUTION,LACTATED 1,000 ML IV PRN
[2019-10-30] MEDS ORDERED: KETOROLAC TROMETHAMINE INJ/PF 30 MG/1 ML SDV ONE (07:28)
[2019-10-30] MEDS ORDERED: PHENYLEPHRINE HCL INJ/PF 10 MG/1 ML SDV ONE (07:28)
[2019-10-30] MEDS ORDERED: FENTANYL CITRATE INJ/PF 100 MCG/2 ML AMPUL ONE (07:28)
[2019-10-30] MEDS ORDERED: EPHEDRINE SULFATE INJ 50 MG/1 ML AMPULE ONE (07:28)
[2019-10-30] MEDS ORDERED: OXYTOCIN 10 UNIT/ML VIAL ONE (07:28)
[2019-10-30] MEDS ORDERED: KETAMINE HCL INJ 500 MG/10 ML VIAL ONE (07:29)
[2019-10-30] MEDS ORDERED: OXYTOCIN/0.9 % SODIUM CHLORIDE 0 UNIT/0 ML RTUINJ ONE (07:29)
[2019-10-30] MEDS ORDERED: ONDANSETRON HCL INJ/PF 4 MG/2 ML SDV ONE (07:29)
[2019-10-30] MEDS ORDERED: BUPIVACAINE HCL 0.25 % INJ/PF (2.5 MG/1 ML) 30 ML VIAL ONE (07:29)
[2019-10-30] MEDS ORDERED: MIDAZOLAM 2 MG/2 ML INJ ONE (07:29)
[2019-10-30] MEDS ORDERED: CITRIC ACID/SODIUM CITRATE ORAL SOLN 15 ML UDCUP ONE (07:30)
[2019-10-30] MEDS ORDERED: ACETAMINOPHEN 1,000 MG/100 ML RTUPB IV PRN (08:34)
[2019-10-30] MEDS ORDERED: DIPH/PERTUSS(ACELL)/TETANUS VAC/PF 0.5 ML SYR (>=10YO) IM PRN (08:34)
[2019-10-30] MEDS ORDERED: PROMETHAZINE HCL INJ 25 MG/1 ML VIAL IV PRN ×2 (08:34→13:00)
[2019-10-30] MEDS ORDERED: ACETAMINOPHEN 325 MG TABLET PO PRN (08:34)
[2019-10-30] MEDS ORDERED: MORPHINE SULFATE 10 MG/ML INJ IM PRN (08:34)
[2019-10-30] MEDS ORDERED: OXYTOCIN/0.9 % SODIUM CHLORIDE 30 UNIT/500 ML RTUINJ IV PRN (08:34)
[2019-10-30] MEDS ORDERED: MEASLES,MUMPS&RUBELLA VACC/PF 0.5 ML VIAL SUBCUT PRN (08:34)
--- NOTE | 2019-10-30 08:38 | PDOC DELIVERY SUMMARY ---
Delivery Summary - Maternal Hx : II Hx # Term Pregnancies: 1 ANN: 11/01/19 Risk Factors: Previous Ruptured Membranes: AROM Fluids: Clear - Delivery Labor: Not In Labor Presentation: Vertex Heart Rate Monitoring: Done Pre-Operatively Support Person Present: Yes Location: OR : Scheduled Placenta: Within Normal Limits - Medications Type of Anesthesia:: Spinal - difficult delivery due to body habitus
--- NOTE | 2019-10-30 08:41 | Operative Report ---
Operative Report DATE OF SURGERY: 10/30/19 PREOPERATIVE DIAGNOSIS: IUP at term prior section POSTOPERATIVE DIAGNOSIS: Same OPERATION: Repeat low transverse SURGEON: WOO CHAVEZ ANESTHESIA: Spinal TISSUE REMOVED OR ALTERED: Placenta COMPLICATIONS: Difficult delivery of head secondary to body habitus ESTIMATED BLOOD LOSS: thousand cc PROCEDURE: The patient was taken to the operating room where spinal anesthesia was obtained and found to be adequate. She was then prepped and draped in the normal sterile fashion and placed in the dorsal supine position with a leftward tilt. A Pfannenstiel skin incision was then made and carried through to the underlying layers of the fascia with the scalpel. The fascia was incised in the midline and the incision extended laterally with the Luna scissors. The superior aspect of the fascial incision was then grasped with Brantley clamps elevated and the underlying rectus muscles dissected off [bluntly]. Attention was then turned to the inferior aspect of the fascial incision which in a similar fashion was grasped, tented up with Minesh clamps, and the rectus muscles dissected off [bluntly]. The rectus muscles were then in the midline and the peritoneum at the amount identified and entered [bluntly]. The peritoneal incision was then extended superiorly and inferiorly with good visualization of the bladder. [The bladder blade was inserted and the vesicouterine peritoneum identified grasped with [place] pickups and entered sharply with the Metzenbaum scissors.[ his incision was then extended laterally with the Metzenbaum scissors and a bladder flap created digitally.] The bladder blade was then reinserted and the lower uterine segment incised in a transverse fashion with the scalpel. The uterine incision was then extended bluntly. The bladder blade was removed and the 's head was delivered from cephalic presentation atraumatically using a Kiwi with 1 pull. The nose and mouth were suctioned and the cord doubly clamped and cut. And the was handed off to waiting pediatricians. The placenta was then delivered manully and the uterus exteriorized and cleared of all clots and debris. The uterine incision was then repaired with 1-0 Vicryl in a running locked fashion. A second layer of the same suture was used to obtain hemostasis via imbrication of the initial layer. The uterus was returned to the patient's abdomen. The gutters were cleared of all clots and debris. All operative sites were noted to be hemostatic. The fascia was reapproximated with 0 Vicryl in a running fashion from each lateral edge to the midline. The patient tolerated the procedure well. Sponge lap needle and ins trument counts are correct -2. 2 g of Ancef were given prior to skin incision. The patient was taken to the recovery area awake and in stable condition.
[2019-10-30] MEDS ORDERED: OXYTOCIN/0.9 % SODIUM CHLORIDE 30 UNIT/500 ML RTUINJ ONE (08:43)
[2019-10-30] MEDS ORDERED: ACETAMINOPHEN 1,000 MG/100 ML RTUPB IV ONE (08:49)
--- NOTE | 2019-10-30 10:50 | Birth Certificate Data ---
Cert Data Datetime Report Generated by CPN: 10/30/2019 10:50 CERTIFICATE DATA 48a. Number of Prev Live Births: 1 (10/30/2019 09:25:Leidy Smith RN) 48b. Now Livin (10/30/2019 09:25:Leidy Smith RN) 48c. Live Births Now : 0 (10/30/2019 09:25:QS system process) 48e. Losses: 0 (10/30/2019 09:25:Leidy Smith RN) RISK FACTORS IN THIS 49c. Previous Births: 0 (10/30/2019 09:25:Leidy Smith, RN) 49f. Previous Cesareans: 1 (10/30/2019 09:25:Leidy Smith, RN) Mother's Height 50b. Height Inches: 63 (10/30/2019 08:26:QS system process) Onset of Labor 56a. PROM >12 Hrs: 0.05 (10/30/2019 09:25:QS system process) 57a. Induction of Labor: N/A (10/30/2019 09:25:Leidy Smith RN) 57c. Non-Vertex Presentation A: Vertex (10/30/2019 09:25:Leidy Smith RN) 57d. Steroids - Lung Mat: None (10/30/2019 09:25:Leidy Smith RN) 57d. Steroids - Lung Mat: Not Applicable (10/30/2019 09:25:Leidy Smith RN) 57f. Mat Ch[place] or Temp >100.4: 97.7 (10/30/2019 09:25:Leidy Smith RN) 57g. Moderate/Heavy Meconium: Clear (10/30/2019 09:25:Leidy Smith RN) 57h. Intolerance of Labor: Repeat Elective (10/30/2019 09:25:Leidy Smith RN) Method of Delivery 58a. Forceps - Unsuccessful A: N/A (10/30/2019 09:25:Leidy Smith RN) 58b. Vacuum - Unsuccessful A: Failed (10/30/2019 09:25:Leidy Smith RN) 58c. Presentation at 58c. Presentation at - A : Vertex (10/30/2019 09:25:Leidy Smith RN) 58c. Presentation at - A : N/A (10/30/2019 09:25:Leidy Smith RN) 58c. Presentation at - A : Cephalic (10/30/2019 09:25:Leidy Smith RN) Final Route and Method of Del 58d. Baby A Route/Delivery: (10/30/2019 09:25:Leidy Smith RN) 58e. Trial of Labor Attempted: No (10/30/2019 09:25:Leidy Smith RN) 58e. Trial of Labor Attempted A: N/A (10/30/2019 09:25:Leidy Smith RN) 58e. Trial of Labor Attempted B: N/A (10/30/2019 09:25:Leidy Smith RN) Birthweight Baby A: 2800 (10/30/2019 09:25:Leidy Smith RN) 60a. Pounds : 6 (10/30/2019 09:25:QS system process) 60b. Ounces: 3 (10/30/2019 09:25:QS system process) 61. GA at Delivery Baby A: 39.5 (10/30/2019 09:25:Leidy Smith RN) : Full Term- 39- 40.6 Weeks (10/30/2019 09:25:QS system process) 62a. 5 Minute Baby A: 9 (10/30/2019 09:25:QS system process)
--- NOTE | 2019-10-30 10:50 | Delivery Summary ---
Del Sum A-C Datetime Report Generated by CPN: 10/30/2019 10:50 DELIVERY PERSONNEL DELIVERY PERSONNEL: [id number] Delivery Doctor:: Jong Lopez MD CARRIER LOADER:: Ayleen Chowdary CRNA Labor and Delivery Nurse:: Susan Anderson RNrelief cook Nurse:: Leidy Smith RN Human Resources Communications Manager:: Susan Anderson RN Neonatal Nurse Practitioner:: ADIS Marques Nursery Nurse:: dEa Mitchell RN Naphthalene Operator Helper/EMPLOYEE'S REPRESENTATIVE: Heydi Lemus CST Naphthalene Operator Helper/EMPLOYEE'S REPRESENTATIVE: Janice Hardwick PATIENT ASSISTANT MATERNAL INFORMATION Delivery Anesthesia: Spinal Medications After Delivery: Pitocin 30 Units in 500ml NS/D5W; Pitocin Drip 20 Units/1000ml NSS Delivery QBL: 683 Maternal Complications: None LABOR SUMMARY EDC: 11/01/2019 00:00 No. Babies in Womb: 1 Attempted: No LABOR INFORMATION Reason for Induction: Not Applicable Oxytocin: N/A Group B Beta Strep: Negative Name of Antibiotic Given: n/a Steroids Given: None Reason Steroids Not Administered: Not Applicable MEMBRANES Membranes Rupture Method: Artificial Rupture of Membranes: 10/30/2019 08:09 Length of Rupture (hr): 0.05 Amniotic Fluid Color: Clear STAGES OF LABOR Stage 3 hr: 0 Stage 3 min: 1 CSECTION DELIVERY Primary Indication: Repeat Elective CSection Urgency: Scheduled CSection Incidence: Repeat Labor: N/A Elective: Elective CSection Incision: Lower Uterine Transverse BABY A INFORMATION Delivery Date/Time: 10/30/2019 08:12 Method of Delivery: Nurse Controlled Delivery: No Born in Route : No : N/A Forceps: N/A Vacuum Extraction: Failed Shoulder Dystocia : No PRESENTATION/POSITION BABY A Presentation: Cephalic Cephalic Presentation: Vertex Breech Presentation: N/A PLACENTA INFORMATION BABY A Placenta Delivery Time : 10/30/2019 08:13 Placenta Method of Delivery: Manual Removal Placenta Status: Delivered SCORES BABY A Heart Rate 1 min: >100 bpm Resp Effort 1 min: Slow, Irregular Reflex Irritability 1 min: Grimace Muscle Tone 1 min: Some Flexion of Extremities Color 1 min: Body [place], Extremities Blue Resuscitation Effort 1 min: Tactile Stimulation; PPV/NCPAP SCORE 1 MIN: 6 Heart Rate 5 min: >100 bpm Resp Effort 5 min: Good Cry Reflex Irritability 5 min: Cough or Sneeze or Pulls Away Muscle Tone 5 min: Active Motion Color 5 min: Body [place], Extremities Blue Resuscitation Effort 5 min: Tactile Stimulation SCORE 5 MIN: 9 INFANT INFORMATION BABY A Gestational Age at Delivery: 39.5 Gestational Status: Full Term- 39- 40.6 Weeks Outcome : Liveborn Condition : Stable Infant Sex: Female IDENTIFICATION BABY A Infant Verification Date/Time: 10/30/2019 08:16 ID Band Number: [id number] Mother's Name Verified: Yes Infant RN Verifying : Leidy Smith RN [facility] WEIGHT/LENGTH BABY A Birthweight (gm): 2800 Weight (lb): 6 Infant Weight (oz): 3 Infant Length (in): 19.75 Infant Length (cm): 50.17 CORD INFORMATION BABY A No. Cord Vessels: 3 Nuchal Cord : N/A Cord Blood Taken: Yes-For Eval (Mom's Blood Type - or O+) Suction: None ASSESSMENT BABY A Skin to Skin: No BABY B INFORMATION : N/A
[2019-10-30] MEDS: OXYCODONE-ACETAMINOPHEN 5-325 MG TABLET PO PRN ×2 (11:35→22:26)
[2019-10-30] MEDS: DOCUSATE SODIUM 100 MG CAPSULE PO SCH ×2 (13:01→17:18)
[2019-10-30] MEDS: PRENATAL VITAMIN W DHA CAPSULE PO SCH (13:01)
[2019-10-30] MEDS: RINGERS SOLUTION,LACTATED 1,000 ML IV PRN ×2 (13:37→22:22)
[2019-10-30] MEDS ORDERED: KETOROLAC TROMETHAMINE INJ/PF 30 MG/1 ML SDV IV SCH (14:00)
[2019-10-30] MEDS: SIMETHICONE 80 MG TAB.CHEW PO PRN (22:26)
[2019-10-31] MEDS ORDERED: KETOROLAC TROMETHAMINE INJ/PF 30 MG/1 ML SDV IV ONE
[2019-10-31] MEDS: IBUPROFEN 800 MG TABLET PO SCH ×3 (05:51→18:37)
[2019-10-31 08:20] LABS: HEMATOCRIT 27.9 % (36.0-47.0); HEMOGLOBIN 9.4 g/dL (12.0-15.5); MEAN CORPUSCULAR HEMOGLOBIN 27.6 pg (27.0-33.4); MEAN CORPUSCULAR HGB CONC 33.7 g/dL (32.0-36.0); MEAN CORPUSCULAR VOLUME 82 fl (80-97); PLATELET COUNT 204 10^3/uL (150-450); RED BLOOD COUNT 3.41 10^6/uL (3.72-5.28); RED CELL DISTRIBUTION WIDTH 14.2 % (11.5-14.0); WHITE BLOOD COUNT 9.5 10^3/uL (4.0-10.5)
--- NOTE | 2019-10-31 09:30 | PDOC PROGRESS REPORT ---
Subjective-OB Progress Note for:: 10/31/19 Subjective: Doing well, hsb at BS, voiding, eating well, passing gas, , no c/o, using inspirometer Physical Exam (OB) Vital Signs: Temp Pulse Resp BP Pulse Ox 98.3 F 100 18 133/75 H 100 10/31/19 08:00 10/31/19 08:00 10/31/19 08:00 10/31/19 08:00 10/31/19 08:00 Intake & Output 10/30/19 10/31/19 11/01/19 06:59 06:59 06:59 Intake Total 2120 400 Output Total 1200 Balance 920 400 - Dressing Removed: No Incision: Dressing - Maternal Morbidity 59. Maternal Morbidity (serious complications experinced by the mother associated with labor and delivery: None of the above - Lochia Lochia Amount: Small 10-25 ml Lochia Color: Rubra/Red - Abdomen Description: Soft, Round Hernia Present: No Fundal Description: Firm, Midline Fundal Height: u/u - u/2 Objective-Diagnostic Laboratory: 10/31/19 07:40 10/31/19 07:40 WBC 9.5 RBC 3.41 L Hgb 9.4 L Hct 27.9 L MCV 82 MCH 27.6 MCHC 33.7 RDW 14.2 H Plt Count 204 Assessment and Plan(PN) - Assessment and Plan (1) Status post primary low transverse section Is this a current diagnosis for this admission?: Yes (2) Acute blood loss anemia Is this a current diagnosis for this admission?: Yes - Time Spent with Patient Time with patient: Less than 15 minutes Medications reviewed and adjusted accordingly: Yes - Disposition Anticipated Discharge Disposition: Home, Self Care Anticipated Discharge Timeframe: within 24 hours
[2019-10-31] MEDS: OXYCODONE-ACETAMINOPHEN 5-325 MG TABLET PO PRN (09:39)
[2019-10-31] MEDS: PRENATAL VITAMIN W DHA CAPSULE PO SCH (09:39)
[2019-10-31] MEDS: DOCUSATE SODIUM 100 MG CAPSULE PO SCH ×2 (09:39→18:38)
[2019-10-31] MEDS ORDERED: NEOMY/BACITRAC ZN/POLY OINT 15 GM TP PRN (12:47)
[2019-10-31] MEDS: SIMETHICONE 80 MG TAB.CHEW PO PRN (18:41)
[2019-11-01] MEDS: IBUPROFEN 800 MG TABLET PO SCH ×3 (00:07→11:16)
[2019-11-01] MEDS: OXYCODONE-ACETAMINOPHEN 5-325 MG TABLET PO PRN (00:08)
--- NOTE | 2019-11-01 09:51 | PDOC PROGRESS REPORT ---
Subjective-OB Progress Note for:: 11/01/19 Subjective: Doing well, ready to go home, passing gas, eating and drinking, scant bleeding, pain under control Physical Exam (OB) Vital Signs: Temp Pulse Resp BP Pulse Ox 98.3 F 79 18 113/59 L 99 11/01/19 08:50 11/01/19 07:39 11/01/19 07:39 11/01/19 07:39 11/01/19 07:39 Intake & Output 10/31/19 11/01/19 11/02/19 06:59 06:59 06:59 Intake Total 2120 400 Output Total 1200 Balance 920 400 - PIH/Pre-Eclampsia Clonus: Negative Headache: Absent Epigastric Pain: No Visual Changes: No - Dressing Removed: Yes Incision: Well Approximated Closure Type: Surgical Glue - Maternal Morbidity 59. Maternal Morbidity (serious complications experinced by the mother associated with labor and delivery: None of the above - Lochia Lochia Amount: Scant < 10 ml Lochia Color: Rubra/Red - Abdomen Description: Soft Hernia Present: No Fundal Description: Firm, Midline Fundal Height: u/u - u/2 Objective-Diagnostic Laboratory: 10/31/19 07:40 Assessment and Plan(PN) - Assessment and Plan (1) Status post primary low transverse section Is this a current diagnosis for this admission?: Yes (2) Acute blood loss anemia Is this a current diagnosis for this admission?: Yes - Time Spent with Patient Time with patient: Less than 15 minutes Medications reviewed and adjusted accordingly: Yes - Disposition Anticipated Discharge Disposition: Home, Self Care Anticipated Discharge Timeframe: within 24 hours - home today
--- NOTE | 2019-11-01 09:54 | PDOC DISCHARGE SUMMARY ---
Impression - Admit/DC Date/PCP Admission Date/Primary Care Provider: 10/30/19 05:03 UTE GUTIERREZ DO Discharge Date: 11/01/19 - Discharge Diagnosis (1) Status post primary low transverse section Is this a current diagnosis for this admission?: Yes (2) Acute blood loss anemia Is this a current diagnosis for this admission?: Yes - Additional Information Resuscitation Status: Full Code Discharge Diet: As Tolerated, Regular Discharge Activity: Activity As Tolerated, No Driving, No Lifting Over 10 Pounds, No Lifting/Push/Pulling, Pelvic Rest, No tub bath Referrals: BRETT GUTIERREZ DO [Primary Care Provider] - ([facility] 1 week) Prescriptions: Oxycodone HCl/Acetaminophen [Percocet 5-325 mg Tablet] 1 tab PO Q4HP PRN #20 tablet PRN Reason: Ibuprofen [Motrin 800 mg Tablet] 800 mg PO Q6 #60 tablet Home Medications: Vit,Calc76/Iron/Folic [Prenatabs Rx Tablet] 1 each PO DAILY 06/14/17 Docusate Sodium [Colace 100 mg Capsule] 100 mg PO BID #30 capsule 06/16/17 Ferrous Sulfate 325 mg PO BID #60 tablet 06/16/17 Tobramycin [Tobrex] 2 drop OD TID 7 Days #5 ml 03/22/18 Ibuprofen [Motrin 800 mg Tablet] 800 mg PO Q6 #60 tablet 10/31/19 Oxycodone HCl/Acetaminophen [Percocet 5-325 mg Tablet] 1 tab PO Q4HP PRN #20 tablet 10/31/19 HPI Gestational Age: 39 Reason(s) for Admission: Ceasarean Section-Repeat Procedures: NST, Ultrasound Intrapartum Procedure(s): : Low Cervical, Transverse Hospital Course Hospital Course: routine post op 59. Maternal Morbidity (serious complications experinced by the mother associated with labor and delivery: None of the above Results Laboratory Results: WBC 9.5 10^3/uL (4.0-10.5) 10/31/19 07:40 RBC 3.41 10^6/uL (3.72-5.28) L 10/31/19 07:40 Hgb 9.4 g/dL (12.0-15.5) L 10/31/19 07:40 Hct 27.9 % (36.0-47.0) L 10/31/19 07:40 MCV 82 fl (80-97) 10/31/19 07:40 MCH 27.6 pg (27.0-33.4) 10/31/19 07:40 MCHC 33.7 g/dL (32.0-36.0) 10/31/19 07:40 RDW 14.2 % (11.5-14.0) H 10/31/19 07:40 Plt Count 204 10^3/uL (150-450) 10/31/19 07:40 Lymph % (Auto) 22.5 % (13-45) 10/27/19 09:10 [place] % (Auto) 5.5 % (3-13) 10/27/19 09:10 Eos % (Auto) 1.0 % (0-6) 10/27/19 09:10 Baso % (Auto) 0.3 % (0-2) 10/27/19 09:10 Absolute Neuts (auto) 5.9 10^3/uL (1.7-8.2) 10/27/19 09:10 Absolute Lymphs (auto) 1.9 10^3/uL (0.5-4.7) 10/27/19 09:10 Absolute Monos (auto) 0.5 10^3/uL (0.1-1.4) 10/27/19 09:10 Absolute Eos (auto) 0.1 10^3/uL (0.0-0.6) 10/27/19 09:10 Absolute Basos (auto) 0.0 10^3/uL (0.0-0.2) 10/27/19 09:10 Seg Neutrophils % 70.7 % (42-78) 10/27/19 09:10 Urine Color YELLOW 10/27/19 09:15 Urine Appearance SLIGHTLY-CLOUDY 10/27/19 09:15 Urine pH 7.0 (5.0-9.0) 10/27/19 09:15 Ur Specific [place] 1.019 10/27/19 09:15 Urine Protein 30 mg/dL (NEGATIVE) H 10/27/19 09:15 Urine Glucose (UA) NEGATIVE mg/dL (NEGATIVE) 10/27/19 09:15 Urine Ketones NEGATIVE mg/dL (NEGATIVE) 10/27/19 09:15 Urine Blood NEGATIVE (NEGATIVE) 10/27/19 09:15 Urine Nitrite NEGATIVE (NEGATIVE) 10/27/19 09:15 Urine Bilirubin NEGATIVE (NEGATIVE) 10/27/19 09:15 Urine Urobilinogen NEGATIVE mg/dL (<2.0) 10/27/19 09:15 Ur Leukocyte Esterase NEGATIVE (NEGATIVE) 10/27/19 09:15 Urine WBC (Auto) 3 /HPF 10/27/19 09:15 Urine RBC (Auto) 0 /HPF 10/27/19 09:15 U Hyaline Cast (Auto) 1 /LPF 10/27/19 09:15 Urine Bacteria (Auto) TRACE /HPF 10/27/19 09:15 Squamous Epi Cells Auto 4 /HPF 10/27/19 09:15 Urine Mucus (Auto) FEW /LPF 10/27/19 09:15 Urine Ascorbic Acid NEGATIVE (NEGATIVE) 10/27/19 09:15 Urine Opiates Screen NEGATIVE 10/27/19 09:15 Urine Methadone Screen NEGATIVE 10/27/19 09:15 Ur Barbiturates Screen NEGATIVE 10/27/19 09:15 Ur Phencyclidine Scrn NEGATIVE 10/27/19 09:15 Ur Amphetamines Screen NEGATIVE 10/27/19 09:15 U Benzodiazepines Scrn NEGATIVE 10/27/19 09:15 Urine Cocaine Screen NEGATIVE 10/27/19 09:15 U Marijuana (THC) Screen NEGATIVE 10/27/19 09:15 COVID-19 Source NASOPHARYNGEAL 10/27/19 09:15 COVID-19 (INESSA) NOT DETECTED 10/27/19 09:15 Blood Type O POSITIVE 10/29/19 08:15 Antibody Screen NEGATIVE 10/29/19 08:15 Plan Health Concerns: pain control Plan of Treatment: discharge home, pain meds Rx, rev S&S to report Goals: no complications Time Spent: Less than 30 Minutes
[2019-11-01] MEDS: PRENATAL VITAMIN W DHA CAPSULE PO SCH (10:13)
[2019-11-01] MEDS: DOCUSATE SODIUM 100 MG CAPSULE PO SCH (10:13)
[2019-11-01 12:38] VITALS: BP 133/75
== END 2019-11-01 14:03 | disposition home or self-care (01) | DRG 787 ==
LOC: 2S 05:03
PROVIDERS: ADMIT Obstetrics & Gynecology Gynecology; ATTEND Obstetrics & Gynecology Gynecology
PROC: 10D00Z1 Extraction of Products of Conception, Low, Open Approach (ICD-10-PCS; principal; 2019-10-30)
DX: O34.211 Maternal care for low transverse scar from previous cesarean delivery (principal); D62 Acute posthemorrhagic anemia; N85.8 Other specified noninflammatory disorders of uterus; O99.02 Anemia complicating childbirth; Z37.0 Single live birth; Z3A.39 39 weeks gestation of pregnancy
CPT/HCPCS: 1961; 36415; 59025; 80307; 81001; 85025; 85027; 86850; 86900; 86901; 87635; 94760; 94799; C9803; J0131; J1885; J2250; J2370; J2405; J2590; J3010; J3490; J7120